=== PATIENT | male | born 1985 | race Caucasian/White ===

== ENCOUNTER 2025-01-10 10:40 | Emergency (ER) | payer OTHER, SELFPAY ==
--- OUTSIDE RECORDS SUMMARY | 2025-01-10 10:46 | XMS_ITS | Clinical Summary ---
Author Organization [facility] Address [address] [place] [phone] Phone Care Team Providers Care Logistics Assistant Name Role Phone Provider, None Primary Care Provider Unavailabl e Allergies No known active allergies Medications No known medications Active Problems No known active problems Social History Tobacco Use Types Packs/Day Years Used Date Smoking Tobacco: Never Smokeless Tobacco: Never Sex and Gender Information Value Date Recorded Sex Assigned at Not on file Legal Sex Male 10:24 PM CDT Gender Identity Not on file Sexual Orientation Not on file Last Filed Vital Signs Vital Sign Reading Time Taken Comments Blood Pressure 142/84 2020 1:02 PM [facility] Pulse 79 2020 1:02 PM [facility] Temperature 36.3 C (97.3 F) 2020 1:02 PM [facility] Respiratory Rate 20 2020 1:02 PM [facility] Oxygen Saturation 98% 2020 1:02 PM [facility] Inhaled Oxygen Concentration - - Weight 142.9 kg (315 lb) 2020 1:02 PM [facility] Height - - Body Mass Index - - Plan of Treatment Health Maintenance Due Date Last Done Comments Hepatitis C Virus (HCV) Screening 1987 TdaP Immunization 1987 Hepatitis B Immunization (2 of 3 - 3-dose series) 04/29/1997 04/01/1997 Human Papillomavirus (HPV) Immunization (1 - 3-dose SCDM series) 05/26/2014 Influenza Immunization (#1) 2024 SARS-COV-2 Immunization ( season) 2024 Respiratory Syncytial Virus (RSV) Immunization (Adult) (1 - 1-dose 75+ series) 05/26/2062 Meningococcal Immunization (ACWY) Aged Out No longer eligible based on patient's age to complete this topic Pneumococcal Immunization Combined Aged Out No longer eligible based on patient's age to complete this topic Rotavirus Immunization Aged Out No lo nger eligible based on patient's age to complete this topic Insurance Care Teams Logistics Assistant Relationship Specialty Start Date End Date Provider, None [place] PCP - General 05/27/20
[2025-01-10 10:50] VITALS: BP 153/83; PULSE 74; RESP 20; TEMP 36.8; O2SAT 99
--- NOTE | 2025-01-10 11:26 | ED_ITS ---
HPI - Extremity Problem General Chief complaint: Extremity Problem,Nontraumatic Stated complaint: Problem with Legs and Feet Time Seen by Provider: 01/10/25 10:50 Source: patient Mode of arrival: ambulatory Limitations: no limitations History of Present Illness HPI Narrative: 39 yo M presents with c/o intermittent tingling, numbness to legs for 1 yr. Worse to feet. At night feels like legs won't relax. Keeps him up at night. Sometimes has to get up and walk around. No pain. Started to notice a brownish discoloration to legs over past few wks. Had appt with new PCP Dec 26 but missed it. Rescheduled for Jan 27. All systems reviewed and negative except as noted above. Related Data Home Medications ?Medication ?Instructions ?Recorded ?Confirmed ?Last Taken ?Type No Home Medications 01/10/25 01/10/25 U nknown History Allergies Allergy/AdvReac Type Severity Reaction Status Date / Time No Known Allergies Allergy Verified 01/10/25 11:02 [facility] Comments At time of signature, agree with nursing past medical, surgical, social and fam fawn history. There is no relevant family history pertinent to the presenting complaint. Exam Narrative: GENERAL: This is a well-nourished, well-developed patient, in no apparent distress. HEAD: normocephalic, atraumatic. EYES: PERRL. Sclera clear/white. Vision is grossly intact. EARS: External ears normal NOSE: External nose normal NECK: Neck supple, non-tender without lymphadenopathy, masses or thyromegaly. CARDIOVASCULAR: Regular rate and rhythm without murmurs, gallops, or rubs. RESPIRATORY: Clear to auscultation. Breath sounds equal bilaterally. No wheezes, rales, or rhonchi. SKIN: warm, Dry, intact with no suspicious lesions or rash, good texture and turgor. NEURO: awake, alert, and oriented to person, place and time. There were no obvious focal neurologic abnormalities. EXTREMITIES: No joint tenderness, effusion, or edema noted. mild venous stasis dermatitis anterior aspect bilateral lower legs. DP pulse present bilaterally using doppler Course Course Level of Care: Express Care Visit Vital Signs Vital signs: Vital Signs Temperature 36.8 C 01/10/25 10:50 Pulse Rate 74 01/10/25 10:50 Respiratory Rate 20 01/10/25 10:50 Blood Pressure 153/83 H 01/10/25 10:50 Pulse Oximetry 99 01/10/25 10:50 Oxygen Delivery Room Air 01/10/25 10:50 Temperature 36.8 C 01/10/25 10:50 Pulse Rate 74 01/10/25 10:50 Respiratory Rate 20 01/10/25 10:50 Blood Pressure 153/83 H 01/10/25 10:50 Pulse Oximetry 99 01/10/25 10:50 Oxygen Delivery Room Air 01/10/25 10:50 reviewed MDM - Extremity (Nontraumatic) MDM Narrative Medical decision making narrative: recommend lifestyle changes, diet and exercise. venous stasis dermatitis and neuropathy mostly likely due to obesity. has appt with new PCP jan 27. Lab Data Labs: Lab Results 01/10/25 Range/Units 10:59 POC Capillary Glucose 112 H (65-105) mg/dl Discharge Plan Discharge Clinical Impression: Neuropathy, Restless leg syndrome, Morbidly obese Patient Disposition: Home Condition: Stable Instructions: Peripheral Neuropathy (ED), Restless Legs Syndrome (ED) Additional Instructions: Your blood sugar was 112. Pulses to your feet were normal. Take over the counter magnesium glycinate at bedtime to treat restless leg syndrome. Drink at least 64 ounces of water a day. Exercise for at least 30 minutes a day. Follow up at scheduled appointment with your doctor. Patient Language: Portuguese Prescriptions: No Action No Home Medications Follow-up/Referrals: PHYSICIAN,WHEELABRATOR OPERATOR [Primary Care Provider, Internal Medicine] Time of Disposition: 11:20
== END 2025-01-10 11:23 | disposition home or self-care (01) ==
PROVIDERS: Emergency Provider Nurse Practitioner Family
DX: G62.9 Polyneuropathy, unspecified (principal); G25.81 Restless legs syndrome; E66.01 Morbid (severe) obesity due to excess calories; Z68.42 Body mass index [BMI] 45.0-49.9, adult
CPT/HCPCS: 82948; 99202; G0463